=== PATIENT | male | born 1960 | race Caucasian/White ===

== ENCOUNTER 2017-03-03 17:48 | Emergency (ER) | payer OTHER ==
[~2017-03-03] VITALS: Ht 180.3 cm; Wt 94.3 kg
[2017-03-03] MEDS ORDERED: HYDROcodone/APAP 5/325MG 1 TAB TABLET PO ONE (19:00)
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
[2017-03-03 20:20] VITALS: BP 119/80
--- NOTE | 2017-03-04 08:02 | RAD ---
Indication pain associated with a fall. AP oblique and lateral views of the left wrist were obtained. No acute bony finding is seen. There is some soft tissue swelling. There are punctate densities overlying the ulnar side of the wrist compatible with debris in the soft tissues. IMPRESSION: No acute bony finding
--- NOTE | 2017-03-04 08:11 | RAD ---
Indication pain associated with a fall. Internally and externally rotated views of the left shoulder as well as a Y view were obtained. No acute finding is seen. Significant degenerative changes are not apparent. Note is made of a small bony density just superior to the acromion having a chronic appearance. IMPRESSION: No acute bony finding
== END 2017-03-03 20:20 | disposition home or self-care (01) ==
LOC: ER 17:48 → EEVIPCON 17:48 → ER 20:20
DX: S46.912A Strain of unspecified muscle, fascia and tendon at shoulder and upper arm level, left arm, initial encounter (principal); S63.502A Unspecified sprain of left wrist, initial encounter; S00.531A Contusion of lip, initial encounter; R22.0 Localized swelling, mass and lump, head; F17.210 Nicotine dependence, cigarettes, uncomplicated; Y04.0XXA Assault by unarmed brawl or fight, initial encounter; Y93.89 Activity, other specified; Y92.148 Other place in prison as the place of occurrence of the external cause; Y99.8 Other external cause status
CPT/HCPCS: 73030; 73110; 99284-25